=== PATIENT | female | born 1970 | race Caucasian/White ===

== ENCOUNTER 2016-09-07 08:39 | Emergency (ER) | payer MEDICAID ==
[2016-09-07] MEDS ORDERED: OXYcodone/APAP 5/325MG TABLET ONE (09:15)
== END 2016-09-07 10:29 | disposition home or self-care (01) ==
LOC: ED 08:39
DX: S29.011A Strain of muscle and tendon of front wall of thorax, initial encounter (principal); X58.XXXA Exposure to other specified factors, initial encounter; Y93.89 Activity, other specified; Y99.8 Other external cause status; Y92.89 Other specified places as the place of occurrence of the external cause
CPT/HCPCS: 99284

== ENCOUNTER → 2017-07-12 | Outpatient (CLI) | payer MEDICAID | END | disposition home or self-care (01) | LOC: WOUND 13:22 | PROVIDERS: ATTEND Internal Medicine | DX: L97.422 Non-pressure chronic ulcer of left heel and midfoot with fat layer exposed (principal); F31.9 Bipolar disorder, unspecified; E03.9 Hypothyroidism, unspecified; F41.9 Anxiety disorder, unspecified; M19.90 Unspecified osteoarthritis, unspecified site; F17.210 Nicotine dependence, cigarettes, uncomplicated; Z90.710 Acquired absence of both cervix and uterus | CPT/HCPCS: 99215 ==

== ENCOUNTER → 2017-07-21 | Outpatient (CLI) | payer MEDICAID | END | disposition home or self-care (01) | LOC: WOUND 14:28 | PROVIDERS: ATTEND Internal Medicine | DX: L97.422 Non-pressure chronic ulcer of left heel and midfoot with fat layer exposed (principal); F31.9 Bipolar disorder, unspecified; E03.9 Hypothyroidism, unspecified; M19.90 Unspecified osteoarthritis, unspecified site; F41.9 Anxiety disorder, unspecified; Z90.710 Acquired absence of both cervix and uterus; F17.210 Nicotine dependence, cigarettes, uncomplicated | CPT/HCPCS: 97597 ==

== ENCOUNTER 2018-01-29 00:13 | Emergency (ER) | payer MEDICAID ==
[~2018-01-29] VITALS: Ht 165.1 cm; Wt 62.0 kg
[~2018-01-29 00:13] MED LIST: CARB200T PO; CLON0.5T PO; ESTR2TAB PO; GABA300C PO; LEVO100T PO; PREG100C PO; QUET200T4 PO; SUVO20TA PO; TIZA4CAP2 PO; TOPI100T24 PO; TOPI50TA35 PO; VENL150C PO
[2018-01-29 00:17] VITALS: BP 133/85
[2018-01-29] MEDS ORDERED: KETOROLAC 30 MG/1 ML ONE (00:41)
[2018-01-29] MEDS ORDERED: KETOROLAC 30 MG/1 ML IM ONE (01:00)
[2018-01-29] MEDS ORDERED: HYDROcodone/APAP 5/325 TABLET PO ONE (01:30)
[2018-01-29] MEDS ORDERED: HYDROcodone/APAP 5/325 TABLET ONE (01:39)
== END 2018-01-29 01:54 | disposition home or self-care (01) ==
LOC: ED 00:45
DX: G89.11 Acute pain due to trauma (principal); M25.562 Pain in left knee; F31.9 Bipolar disorder, unspecified; F17.210 Nicotine dependence, cigarettes, uncomplicated; Z86.19 Personal history of other infectious and parasitic diseases
CPT/HCPCS: 73564; 96372; 99284; J1885

== ENCOUNTER 2019-12-26 21:21 | Emergency (ER) | payer MEDICAID ==
[~2019-12-26] VITALS: Ht 165.1 cm; Wt 72.2 kg
[~2019-12-26 21:21] MED LIST changes: +CEFD300C37 PO; +METR500T PO; +OXYC5TAB3 PO; +PROM25TA10 PO
--- NOTE | 2019-12-26 21:33 | NUR ---
CARE ASSUMED. PROVIDER AT BEDSIDE TO EVAL.
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
[2019-12-26] MEDS ORDERED: HYDROcodone/APAP 5/325 TABLET ONE (21:45)
--- NOTE | 2019-12-26 21:52 | NUR ---
Pt medicated per JUN for 10/[address] Pt to CT via bonnie.
[2019-12-26] MEDS ORDERED: HYDROcodone/APAP 5/325 TABLET PO ONE (22:00)
--- NOTE | 2019-12-26 22:21 | NUR ---
Pt laying down. States no change in pain. Pt states she feels like her nose is swelling more and feels stuffy. No s/s of acute resp distress. No acute neuro changes noted. VSS. Call light in reach. PA to be updated to pt status. Awaiting CT results.
--- NOTE | 2019-12-26 22:35 | NUR ---
ERP at bedside to recheck.
[2019-12-26] MEDS ORDERED: ONDANSETRON ODT 4 MG ONE (22:53)
[2019-12-26] MEDS ORDERED: HYDROmorphone 1 MG/ML, 1ML INJ ONE (22:54)
--- NOTE | 2019-12-26 22:55 | NUR ---
PER LEXUS LARES, HOLD ON IV. IM MEDS TO BE GIVEN INSTEAD. PT TO BE D/C HOME.
[2019-12-26] MEDS ORDERED: MORPHINE SULFATE 4 MG/ML, 1ML IVPush PRN (23:00)
[2019-12-26] MEDS ORDERED: ONDANSETRON 2MG/ML, 2ML IVPush ONE (23:00)
[2019-12-26] MEDS ORDERED: SODIUM CHLORIDE FLUSH 10ML SYR IVF ONE (23:00)
--- NOTE | 2019-12-26 23:04 | NUR ---
Pt medicated per PA orders. 1 mg Dilaudid IM and 4 mg Zofran ODT. Warm blanket given. Ice packs given. Awaiting pt's ride home to d/c. Call light in reach.
[2019-12-26] MEDS ORDERED: ONDANSETRON ODT 4 MG PO ONE (23:30)
[2019-12-26] MEDS ORDERED: HYDROmorphone 1 MG/ML, 1ML INJ IM ONE (23:30)
--- NOTE | 2019-12-26 23:32 | NUR ---
Pt waiting for ride. No needs expressed. Call light in reach.
[2019-12-26 23:46] VITALS: BP 127/83
== END 2019-12-26 23:50 | disposition home or self-care (01) ==
LOC: ED 22:05
DX: S02.32XA Fracture of orbital floor, left side, initial encounter for closed fracture (principal); S02.40FA Zygomatic fracture, left side, initial encounter for closed fracture; S02.40DA Maxillary fracture, left side, initial encounter for closed fracture; S09.90XA Unspecified injury of head, initial encounter; M54.2 Cervicalgia; Y04.8XXA Assault by other bodily force, initial encounter; Y93.89 Activity, other specified; Y92.512 Supermarket, store or market as the place of occurrence of the external cause; Y99.8 Other external cause status
CPT/HCPCS: 70450; 70486; 72125; 96372; 99285; J1170; Q0162

== ENCOUNTER 2020-01-30 18:50 | Inpatient (IN) | payer MEDICAID ==
[~2020-01-30] VITALS: Ht 165.1 cm; Wt 73.5 kg
[2020-01-30] MEDS ORDERED: PROMETHAZINE 25 MG/ML, 1ML IM ONE (19:30)
[2020-01-30] MEDS ORDERED: MORPHINE SULFATE 4 MG/ML, 1ML ONE (19:39)
[2020-01-30] MEDS ORDERED: PROMETHAZINE 25 MG/ML, 1ML ONE (19:40)
--- NOTE | 2020-01-30 19:45 | NUR ---
PT UP TO RESTROOM, UNCONTROLLED DIARRHEA. SAMPLE COLLECTED, PT PROVIDED WITH NEW UNDERWEAR, PAD, AND WATERPROOF PAD FOR BED. DENIES ANY FURTHER NEEDS, CALL LIGHT IN REACH. SAMPLE WALKED TO LAB.
[2020-01-30] MEDS: MORPHINE SULFATE 4 MG/ML, 1ML IVPush PRN (20:26)
[2020-01-30 20:37] LABS: ALANINE AMINOTRANSFERASE 16 U/L (12-78); ALBUMIN 4.4 g/dL (3.4-5.0); ANION GAP 10 mmol/L (5-15); CALCIUM 10.1 mg/dL (8.5-10.1); CHLORIDE 106 mmol/L (98-107); CREATININE 1.41 mg/dL (0.55-1.02)
[2020-01-30 20:38] LABS: ALKALINE PHOSPHATASE 247 U/L (45-117); BILIRUBIN,TOTAL 0.4 mg/dL (0.2-1.0); TOTAL PROTEIN 8.1 g/dL (6.4-8.2)
[2020-01-30 20:51] LABS: BASOPHILS % (AUTO) 0 % (0-1); EOSINOPHILS % (AUTO) 0 % (1-7); LYMPHOCYTES % (AUTO) 7 % (22-44); MEAN CORPUSCULAR HEMOGLOBIN 30.1 pg (27.0-34.8); MEAN CORPUSCULAR HGB CONC 33.3 g/dL (32.4-35.8); MEAN PLATELET VOLUME 9.3 fL (7.4-10.4); MONOCYTES % (AUTO) 3 % (2-9); NEUTROPHILS % (AUTO) 91 % (42-75); PLATELET COUNT 408 x10^3/uL (130-400); RED BLOOD COUNT 5.16 x10^6/uL (3.82-5.3); RED CELL DISTRIBUTION WIDTH 12.6 % (9.6-15.2)
[2020-01-30] MEDS ORDERED: OMNIPAQUE 350 MG/ML, 100ML BOTTLE ONE (21:06)
--- NOTE | 2020-01-30 21:13 | NUR ---
PT RETURNED FROM CT AT THIS TIME.
[2020-01-30 21:19] LABS: MD SCAN
[2020-01-30 21:27] LABS: CLOSTRIDIUM DIFFICILE ANTIGEN NEGATIVE; CLOSTRIDIUM DIFFICILE TOXIN NEGATIVE (Negative)
[2020-01-30] MEDS ORDERED: POTASSIUM CHLORIDE 20 MEQ in SODIUM CHLORIDE 0.9% 1,000 ML IV ONE (23:30)
[2020-01-30] MEDS ORDERED: SODIUM CHLORIDE FLUSH 10ML SYR IVF PRN (23:30)
--- NOTE | 2020-01-30 23:32 | NUR ---
MED REC REVIEWED TO THE BEST OF THIS NURSE'S CAPABILITIES, PT UNSURE OF DOSAGES.
--- NOTE | 2020-01-30 23:53 | NUR ---
REPORT TO DAVEY ABEL RN. PT UPDATED ON PLAN OF CARE. DENIES ANY NEEDS OR CONCERNS AT THIS TIME.
[2020-01-31] MEDS ORDERED: SODIUM CHLORIDE 0.9% 1,000 ML IV SCH (00:30)
[2020-01-31] MEDS ORDERED: LORazepam 2 MG/ML, 1ML IVPush PRN (00:30)
[2020-01-31] MEDS ORDERED: KETOROLAC 30 MG/1 ML IV PRN (00:30)
[2020-01-31] MEDS ORDERED: ONDANSETRON 2MG/ML, 2ML IVPush PRN (00:30)
[2020-01-31] MEDS ORDERED: ENALAPRILAT 1.25 MG/ML, 2ML IVPush PRN (00:30)
--- NOTE | 2020-01-31 00:32 | NUR ---
10G NG TUBE INSTILLED IN RIGHT NOSTRIL. POSITIVE RETURN OF GASTRIC CONTENTS AND INSUFFLATION OVER LUQ. TAPED INTO PLACE AND ON INTERMITTENT LOW SUCTION PER ORDERS AT THIS TIME. XRAY CALLED TO VERIFY PLACEMENT. PT TOLERATED VERY WELL, DENIES ANY NEEDS OR CONCERNS AT THIS TIME. CALL LIGHT IN REACH.
[2020-01-31] MEDS ORDERED: MORPHINE SULFATE 4 MG/ML, 1ML ONE (00:39)
[2020-01-31] MEDS: MORPHINE SULFATE 4 MG/ML, 1ML IVPush PRN (00:49)
[2020-01-31] MEDS ORDERED: SODIUM CHLORIDE 0.9% 1,000ML IVBOLUS ONE (01:00)
[2020-01-31] MEDS ORDERED: CEFAZOLIN PMX 2GM/50ML 50 ML IVPB ONE (01:00)
[2020-01-31 01:22] VITALS: BP 112/78
[2020-01-31] MEDS ORDERED: BREX3TAB PO (01:49)
[2020-01-31] MEDS ORDERED: [UNRECOGNIZED DRUG - OTHER] PO (01:49)
[2020-01-31] MEDS ORDERED: vraylar PO (01:49)
[2020-01-31] MEDS: HEPARIN 5,000 UNITS/ML, 1ML SQ SCH ×3 (02:14→20:23)
[2020-01-31] MEDS ORDERED: NS + 20MEQ KCL 1,000 ML IV ONE (02:30)
[2020-01-31 05:05] LABS: INTERNATIONAL NORMALIZED RATIO 0.99 (0.93-1.1); PROTHROMBIN TIME 10.5 Seconds (9.6-11.5)
[2020-01-31 05:12] LABS: ANION GAP 4 mmol/L (5-15); CALCIUM 8.4 mg/dL (8.5-10.1); CHLORIDE 108 mmol/L (98-107)
[2020-01-31 05:13] LABS: CREATININE 1.14 mg/dL (0.55-1.02)
[2020-01-31 05:52] LABS: BASOPHILS % (AUTO) 1 % (0-1); EOSINOPHILS % (AUTO) 1 % (1-7); LYMPHOCYTES % (AUTO) 14 % (22-44); MEAN CORPUSCULAR HEMOGLOBIN 30.5 pg (27.0-34.8); MEAN CORPUSCULAR HGB CONC 32.8 g/dL (32.4-35.8); MEAN PLATELET VOLUME 9.5 fL (7.4-10.4); MONOCYTES % (AUTO) 2 % (2-9); NEUTROPHILS % (AUTO) 83 % (42-75); PLATELET COUNT 316 x10^3/uL (130-400); RED BLOOD COUNT 4.49 x10^6/uL (3.82-5.3); RED CELL DISTRIBUTION WIDTH 12.7 % (9.6-15.2)
[2020-01-31] MEDS ORDERED: LEVOTHYROXINE 100 MCG TABLET PO SCH (06:00)
[2020-01-31 06:29] VITALS: BP 103/70
[2020-01-31 06:31] LABS: MD SCAN
[2020-01-31] MEDS ORDERED: KETOROLAC 30 MG/1 ML IV SCH (08:30)
[2020-01-31] MEDS: morphine SULFATE 10 MG/ML, 1ML IVPush PRN ×4 (08:34→20:24)
[2020-01-31 14:09] VITALS: BP 101/68
[2020-01-31] MEDS ORDERED: KETOROLAC 30 MG/1 ML IM PRN (16:30)
[2020-01-31 18:46] VITALS: BP 94/61
[2020-01-31] MEDS ORDERED: QUETIAPINE 200 MG TABLET PO SCH (21:00)
[2020-01-31] MEDS ORDERED: TEMPLATE NON-FORMULARY MED. (Suvorexant (Belsomra) 20 MG) HOMEMEDPO SCH (21:00)
[2020-01-31] MEDS: KETOROLAC 30 MG/1 ML IV PRN (23:19)
[2020-01-31 23:24] LABS: MICROSCOPIC INDICATED
[2020-02-01] MEDS ORDERED: SODIUM CHLORIDE 0.9% 1,000 ML IV SCH ×2 (00:30)
[2020-02-01 00:34] VITALS: BP 98/60
[2020-02-01] MEDS: morphine SULFATE 10 MG/ML, 1ML IVPush PRN ×8 (02:34→23:54)
[2020-02-01] MEDS: HEPARIN 5,000 UNITS/ML, 1ML SQ SCH ×3 (05:17→19:54)
[2020-02-01 05:27] LABS: MEAN CORPUSCULAR HEMOGLOBIN 30.8 pg (27.0-34.8); MEAN CORPUSCULAR HGB CONC 33.2 g/dL (32.4-35.8); MEAN PLATELET VOLUME 8.2 fL (7.4-10.4); PLATELET COUNT 246 x10^3/uL (130-400); RED BLOOD COUNT 3.83 x10^6/uL (3.82-5.3); RED CELL DISTRIBUTION WIDTH 12.7 % (9.6-15.2)
[2020-02-01 05:39] LABS: ANION GAP 3 mmol/L (5-15); CALCIUM 8.1 mg/dL (8.5-10.1); CHLORIDE 116 mmol/L (98-107); CREATININE 0.79 mg/dL (0.55-1.02)
[2020-02-01 06:01] VITALS: BP 112/77
[2020-02-01 06:17] LABS: MD YES
[2020-02-01 06:19] LABS: <PLATELET ESTIMATE> ADEQUATE; <PLT MORPHOLOGY> NORMAL PLT MORPH; <RBC MORPHOLOGY> NORMAL; LYMPHS% (MANUAL) 52 % (22-44); MONOS#(MANUAL) 0.16 x10^3/uL (0.3-2.7); MONOS% (MANUAL) 3 % (2-9); SEG#(MANUAL) 2.34 x10^3/uL (1.8-6.8); SEGS% (MANUAL) 45 % (42-75)
[2020-02-01] MEDS: SODIUM CHLORIDE 0.45% 1,000 ML IV SCH (13:00)
[2020-02-01 15:07] VITALS: BP 111/77
[2020-02-01 18:21] VITALS: BP 91/59
[2020-02-01 20:00] VITALS: BP 103/70
[2020-02-01 23:44] VITALS: BP 115/78
[2020-02-02 02:31] VITALS: BP 114/76
[2020-02-02] MEDS: morphine SULFATE 10 MG/ML, 1ML IVPush PRN ×5 (03:16→17:25)
[2020-02-02] MEDS: HEPARIN 5,000 UNITS/ML, 1ML SQ SCH ×3 (03:16→21:23)
[2020-02-02] MEDS: SODIUM CHLORIDE 0.45% 1,000 ML IV SCH (03:27)
[2020-02-02 05:06] LABS: ANION GAP 7 mmol/L (5-15); CHLORIDE 115 mmol/L (98-107)
[2020-02-02 05:11] LABS: BASOPHILS % (AUTO) 1 % (0-1); EOSINOPHILS % (AUTO) 0 % (1-7); LYMPHOCYTES % (AUTO) 37 % (22-44); MEAN CORPUSCULAR HEMOGLOBIN 30.6 pg (27.0-34.8); MEAN CORPUSCULAR HGB CONC 33.1 g/dL (32.4-35.8); MEAN PLATELET VOLUME 8.7 fL (7.4-10.4); MONOCYTES % (AUTO) 7 % (2-9); NEUTROPHILS % (AUTO) 56 % (42-75); PLATELET COUNT 207 x10^3/uL (130-400); RED BLOOD COUNT 3.37 x10^6/uL (3.82-5.3); RED CELL DISTRIBUTION WIDTH 12.4 % (9.6-15.2)
[2020-02-02 05:21] LABS: MD NO
[2020-02-02 06:24] VITALS: BP 124/84
[2020-02-02] MEDS: KETOROLAC 30 MG/1 ML IV PRN ×2 (08:11→18:39)
[2020-02-02] MEDS ORDERED: POTASSIUM CHLORIDE 20 MEQ in SODIUM CHLORIDE 0.45% 1,000 ML IV SCH (10:30)
[2020-02-02 10:57] LABS: MICROSCOPIC NOT IND
[2020-02-02 12:56] VITALS: BP 130/78
[2020-02-02] MEDS: POTASSIUM CHLORIDE 20 MEQ in SODIUM CHLORIDE 0.45% 1,000 ML IV SCH (14:30)
[2020-02-02] MEDS ORDERED: POTASSIUM CHLORIDE 20 MEQ in SODIUM CHLORIDE 0.9% 250 ML IV ONE (15:00)
[2020-02-02 19:02] VITALS: BP 117/75
[2020-02-02] MEDS ORDERED: PROMETHAZINE 25MG TABLET PO PRN (20:00)
[2020-02-02] MEDS ORDERED: PROMETHAZINE 25 MG/ML, 1ML IM PRN (20:00)
[2020-02-02] MEDS ORDERED: QUETIAPINE 200 MG TABLET PO SCH (21:00)
[2020-02-03 00:34] VITALS: BP 109/71
[2020-02-03] MEDS: POTASSIUM CHLORIDE 20 MEQ in SODIUM CHLORIDE 0.45% 1,000 ML IV SCH (00:39)
[2020-02-03 03:15] VITALS: BP 116/75
[2020-02-03 05:20] LABS: ANION GAP 4 mmol/L (5-15); CALCIUM 8.2 mg/dL (8.5-10.1); CHLORIDE 116 mmol/L (98-107)
[2020-02-03 05:22] LABS: CREATININE 0.64 mg/dL (0.55-1.02)
[2020-02-03 05:23] VITALS: BP 112/70
[2020-02-03] MEDS: HEPARIN 5,000 UNITS/ML, 1ML SQ SCH ×2 (05:35→13:23)
[2020-02-03] MEDS: morphine SULFATE 10 MG/ML, 1ML IVPush PRN (05:35)
[2020-02-03 06:06] LABS: BASOPHILS % (AUTO) 1 % (0-1); EOSINOPHILS % (AUTO) 0 % (1-7); LYMPHOCYTES % (AUTO) 50 % (22-44); MEAN CORPUSCULAR HEMOGLOBIN 30.6 pg (27.0-34.8); MEAN CORPUSCULAR HGB CONC 33.9 g/dL (32.4-35.8); MEAN PLATELET VOLUME 8.9 fL (7.4-10.4); MONOCYTES % (AUTO) 9 % (2-9); NEUTROPHILS % (AUTO) 41 % (42-75); PLATELET COUNT 227 x10^3/uL (130-400); RED BLOOD COUNT 3.62 x10^6/uL (3.82-5.3); RED CELL DISTRIBUTION WIDTH 12.3 % (9.6-15.2)
[2020-02-03 06:18] LABS: MD NO
[2020-02-03 06:19] VITALS: BP 139/86
[2020-02-03] MEDS ORDERED: [UNRECOGNIZED DRUG - OTHER] PO SCH (09:00)
[2020-02-03] MEDS ORDERED: CARIPRAZINE HOMEMEDPO SCH (09:00)
[2020-02-03] MEDS ORDERED: ACETAMINOPHEN 325 MG TABLET PO PRN (09:30)
[2020-02-03] MEDS ORDERED: IBUPROFEN 600 MG TABLET PO PRN (09:30)
[2020-02-03 12:13] VITALS: BP 136/77
== END 2020-02-03 16:07 | disposition home or self-care (01) | DRG 247 ==
LOC: ED 20:55 → EDIP 23:46 → 3N 01-31 01:18 → DCLOUNGE 02-03 15:31
PROVIDERS: ADMIT Family Medicine; ATTEND Family Medicine
DX: K56.600 Partial intestinal obstruction, unspecified as to cause (principal); E03.9 Hypothyroidism, unspecified; E86.0 Dehydration; E87.1 Hypo-osmolality and hyponatremia; E87.2 Acidosis; E87.6 Hypokalemia; F12.10 Cannabis abuse, uncomplicated; F17.200 Nicotine dependence, unspecified, uncomplicated; F19.20 Other psychoactive substance dependence, uncomplicated; F31.81 Bipolar II disorder; F41.1 Generalized anxiety disorder; F43.10 Post-traumatic stress disorder, unspecified; F60.3 Borderline personality disorder; I10 Essential (primary) hypertension; I25.10 Atherosclerotic heart disease of native coronary artery without angina pectoris; K55.9 Vascular disorder of intestine, unspecified; Z96.659 Presence of unspecified artificial knee joint; M19.90 Unspecified osteoarthritis, unspecified site; I34.1 Nonrheumatic mitral (valve) prolapse; K56.7 Ileus, unspecified; N17.9 Acute kidney failure, unspecified; Z79.899 Other long term (current) drug therapy; Z86.19 Personal history of other infectious and parasitic diseases; Z90.49 Acquired absence of other specified parts of digestive tract; Z90.710 Acquired absence of both cervix and uterus; R71.0 Precipitous drop in hematocrit
CPT/HCPCS: 36415; 71045; 74018; 74177; 74270; 80048; 80053; 81001; 81003; 83605; 83690; 83735; 84100; 85025; 85610; 87040; 87324; 93005; 96372; 99285; G0378; J0690; J1644; J1885; J2550; J3480; Q9967; J2270; J7030; J7050

== ENCOUNTER 2020-03-07 13:23 | Emergency (ER) | payer MEDICAID ==
[~2020-03-07] VITALS: Ht 165.1 cm; Wt 73.8 kg
[~2020-03-07 13:23] MED LIST changes: +BREX3TAB PO; +CARB200T4 PO; +ESOM20CA PO; +LEVO100T5 PO; +MEMA5TAB42 PO; +PANT40GR PO; +QUET400T PO; +SUMA50TA4 PO; +SUVO10TA PO; +[UNRECOGNIZED DRUG - OTHER] PO; +vraylar PO
[2020-03-07 13:44] VITALS: BP 112/66
--- NOTE | 2020-03-07 14:24 | NUR ---
PT GOING TO XRAY
--- NOTE | 2020-03-07 14:59 | NUR ---
ALL RESULTS ARE BACK AT THIS TIME. CHART UP FOR RECHECK.
[2020-03-07] MEDS ORDERED: MAGNESIUM CITRATE 300ML ORAL SOL PO ONE (15:30)
== END 2020-03-07 15:54 | disposition home or self-care (01) ==
LOC: ED 15:32
DX: S83.422A Sprain of lateral collateral ligament of left knee, initial encounter (principal); K59.00 Constipation, unspecified; G89.29 Other chronic pain; M19.90 Unspecified osteoarthritis, unspecified site; F17.210 Nicotine dependence, cigarettes, uncomplicated; Z90.710 Acquired absence of both cervix and uterus; X58.XXXA Exposure to other specified factors, initial encounter; Y93.89 Activity, other specified; Y92.89 Other specified places as the place of occurrence of the external cause; Y99.8 Other external cause status
CPT/HCPCS: 74022; 99284; 99406

== ENCOUNTER 2020-08-14 00:03 | Emergency (ER) | payer MEDICAID ==
[~2020-08-14] VITALS: Ht 167.6 cm; Wt 70.0 kg
[~2020-08-14 00:03] MED LIST changes: -OXYC5TAB3 PO; +OXYC5TAB98 PO
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
--- NOTE | 2020-08-14 00:18 | NUR ---
ERP AT BEDSIDE
[2020-08-14] MEDS ORDERED: LORazepam 1MG TABLET ONE (00:26)
[2020-08-14] MEDS ORDERED: LORazepam 1MG TABLET PO ONE (00:30)
--- NOTE | 2020-08-14 01:24 | NUR ---
PT RESTING COMFORTABLY ON GURNEY WITH EYES CLOSED. PT REPOSITIONED PER REQUEST AND PROVIDED WARM BLANKETS. PT DENIES ANY ADDITIONAL NEEDS AT THIS TIME. SAFETY PRECAUTIONS IN PLACE AND SITTER IN VIEW.
--- NOTE | 2020-08-14 02:01 | NUR ---
PT ON PHONE WITH PER ERP SUGGESTION. PT AND CONSISTENTLY ARGUING ON PHONE. WILL NOT COME PICK PT UP NOR LET HER INTO THEIR HOME, PER PT AND DISCUSSION. ERP AWARE. PT TO REMAIN IN ED UNTIL SAFE DISCHARGE OPTION AVAIALBLE.
[2020-08-14] MEDS ORDERED: QUETIAPINE 100MG TABLET PO ONE (02:30)
--- NOTE | 2020-08-14 02:40 | NUR ---
PT REQUESTING NIGHTLY DOSE OF SEROQUEL, 800 MG. ERP AWARE AND PT MEDICATED PER EMAR. PT REPOSITIONED AND PROVIDED ADDITIONAL BLANKET. PT DENIES ANY ADDITIONAL NEEDS
[2020-08-14] MEDS ORDERED: QUETIAPINE 200 MG TABLET PO ONE (03:00)
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
[2020-08-14 05:58] VITALS: BP 110/72
--- NOTE | 2020-08-14 05:59 | NUR ---
Patient given discharge instructions and they have confirmed that they understand the instructions. Patient ambulatory with steady gait.
== END 2020-08-14 06:08 | disposition home or self-care (01) ==
LOC: ED 00:33
DX: F32.9 Major depressive disorder, single episode, unspecified (principal); F41.1 Generalized anxiety disorder; Z72.9 Problem related to lifestyle, unspecified; F17.210 Nicotine dependence, cigarettes, uncomplicated
CPT/HCPCS: 99283; 99406

== ENCOUNTER 2020-08-20 12:19 | Emergency (ER) | payer MEDICAID ==
[~2020-08-20] VITALS: Ht 165.1 cm; Wt 66.6 kg
[2020-08-20] MEDS ORDERED: SODIUM CHLORIDE FLUSH 10ML SYR IVF ONE (13:30)
[2020-08-20] MEDS ORDERED: MORPHINE SULFATE 4 MG/ML, 1ML IVPush PRN (13:30)
[2020-08-20] MEDS ORDERED: PROMETHAZINE 25 MG/ML, 1ML IM ONE (13:30)
--- NOTE | 2020-08-20 13:40 | NUR ---
PT TO RADIOLOGY AT THIS TIME.
[2020-08-20 13:54] LABS: BASOPHILS % (AUTO) 1 % (0-1); EOSINOPHILS % (AUTO) 0 % (1-7); LYMPHOCYTES % (AUTO) 15 % (22-44); MEAN CORPUSCULAR HEMOGLOBIN 30.7 pg (27.0-34.8); MEAN CORPUSCULAR HGB CONC 33.4 g/dL (32.4-35.8); MEAN PLATELET VOLUME 8.3 fL (7.4-10.4); MONOCYTES % (AUTO) 6 % (2-9); NEUTROPHILS % (AUTO) 78 % (42-75); PLATELET COUNT 284 x10^3/uL (130-400); RED BLOOD COUNT 4.63 x10^6/uL (3.82-5.3)
[2020-08-20] MEDS ORDERED: MORPHINE SULFATE 4 MG/ML, 1ML ONE (13:54)
[2020-08-20] MEDS ORDERED: PROMETHAZINE 25 MG/ML, 1ML ONE (13:54)
[2020-08-20 13:57] LABS: MD NO
[2020-08-20 14:03] LABS: ANION GAP 4 mmol/L (5-15); CALCIUM 9.6 mg/dL (8.5-10.1); CHLORIDE 104 mmol/L (98-107)
[2020-08-20 14:07] LABS: ALANINE AMINOTRANSFERASE 18 U/L (12-78); ALKALINE PHOSPHATASE 199 U/L (45-117); BILIRUBIN,TOTAL 0.2 mg/dL (0.2-1.0); CREATININE 1.06 mg/dL (0.55-1.02); TOTAL PROTEIN 7.8 g/dL (6.4-8.2)
[2020-08-20] MEDS ORDERED: OMNIPAQUE 350 MG/ML, 100ML BOTTLE ONE (14:53)
[2020-08-20 16:31] VITALS: BP 97/50
== END 2020-08-20 16:35 | disposition home or self-care (01) ==
LOC: ED 13:51
DX: K52.9 Noninfective gastroenteritis and colitis, unspecified (principal); F17.210 Nicotine dependence, cigarettes, uncomplicated; Z90.710 Acquired absence of both cervix and uterus
CPT/HCPCS: 36415; 74021; 74177; 80053; 83690; 85025; 96372; 96374; 99285; J2270; J2550; Q9967

== ENCOUNTER → 2020-09-02 | Outpatient (CLI) | payer MEDICAID | END | disposition home or self-care (01) | LOC: RAD 15:51 | PROVIDERS: ATTEND Emergency Medicine | DX: R10.9 Unspecified abdominal pain (principal) | CPT/HCPCS: 76770 ==

== ENCOUNTER 2020-12-25 09:53 | Inpatient (IN) | payer MEDICAID ==
[~2020-12-25] VITALS: Ht 165.1 cm; Wt 78.5 kg
[~2020-12-25 09:53] MED LIST changes: -QUET400T PO; +QUET400T2 PO
[2020-12-25] MEDS ORDERED: ONDANSETRON 2MG/ML, 2ML ONE (11:53)
[2020-12-25] MEDS ORDERED: MORPHINE SULFATE 4 MG/ML, 1ML ONE ×4 (11:53→21:35)
--- NOTE | 2020-12-25 11:55 | NUR ---
poc reviewed with erp. He would like ct completed read before NG placed
[2020-12-25 11:58] LABS: BASOPHILS % (AUTO) 0 % (0-1); EOSINOPHILS % (AUTO) 0 % (1-7); LYMPHOCYTES % (AUTO) 13 % (22-44); MEAN CORPUSCULAR HEMOGLOBIN 30.7 pg (27.0-34.8); MEAN CORPUSCULAR HGB CONC 34.2 g/dL (32.4-35.8); MEAN PLATELET VOLUME 9.4 fL (7.4-10.4); MONOCYTES % (AUTO) 7 % (2-9); NEUTROPHILS % (AUTO) 80 % (42-75); PLATELET COUNT 261 x10^3/uL (130-400); RED BLOOD COUNT 5.06 x10^6/uL (3.82-5.3); RED CELL DISTRIBUTION WIDTH 12.9 % (9.6-15.2)
[2020-12-25] MEDS ORDERED: SODIUM CHLORIDE 0.9% 1,000ML IVBOLUS ONE (12:00)
[2020-12-25] MEDS ORDERED: ONDANSETRON 2MG/ML, 2ML IVPush ONE (12:00)
[2020-12-25] MEDS ORDERED: SODIUM CHLORIDE FLUSH 10ML SYR IVF ONE (12:00)
[2020-12-25 12:07] LABS: ANION GAP 8 mmol/L (5-15); CALCIUM 9.2 mg/dL (8.5-10.1); CHLORIDE 100 mmol/L (98-107)
[2020-12-25 12:11] LABS: ALANINE AMINOTRANSFERASE 25 U/L (12-78); ALKALINE PHOSPHATASE 236 U/L (45-117); BILIRUBIN,TOTAL 0.5 mg/dL (0.2-1.0); CREATININE 1.03 mg/dL (0.55-1.02); TOTAL PROTEIN 7.8 g/dL (6.4-8.2)
--- NOTE | 2020-12-25 12:11 | NUR ---
CT CALLED TO EXPEDITE EXAM
[2020-12-25] MEDS ORDERED: PROCHLORPERAZINE 5 MG/ML, 2ML ONE (12:20)
[2020-12-25] MEDS ORDERED: PROCHLORPERAZINE 5 MG/ML, 2ML IVPush ONE (12:30)
[2020-12-25] MEDS ORDERED: OMNIPAQUE 350 MG/ML, 100ML BOTTLE ONE (12:32)
[2020-12-25] MEDS: MORPHINE SULFATE 4 MG/ML, 1ML IVPush PRN ×2 (12:38→15:33)
--- NOTE | 2020-12-25 13:17 | NUR ---
With reassessment abd pain/nausea relived to 0/10 Poc reviewed with provider: no need to cath for ua, can wait until patient voids ERP considering neccesary interventions for abnormal CT results
[2020-12-25] MEDS ORDERED: MIDAZOLAM 1 MG/ML, 2ML ONE (13:25)
--- NOTE | 2020-12-25 13:48 | NUR ---
1MG OF VERSED USED TO GENTLY PLACED RIGHT NARE 18F NG TUBE
[2020-12-25] MEDS ORDERED: MIDAZOLAM 1 MG/ML, 2ML IVPush PRN (14:00)
[2020-12-25] MEDS ORDERED: hydrALAzine 20 MG/ML, 1ML IVPush PRN (14:30)
[2020-12-25] MEDS ORDERED: ACETAMINOPHEN 325 MG TABLET PO PRN (14:30)
[2020-12-25] MEDS ORDERED: ONDANSETRON 2MG/ML, 2ML IVPush PRN (14:30)
[2020-12-25 14:38] LABS: INTERNATIONAL NORMALIZED RATIO 1.02 (0.93-1.1); PROTHROMBIN TIME 10.9 Seconds (9.6-11.5)
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
[2020-12-25] MEDS: LACTATED RINGERS 1,000 ML IV SCH (15:30)
[2020-12-25] MEDS ORDERED: ENOXAPARIN 40 MG/0.4 ML ONE (15:31)
[2020-12-25] MEDS: ENOXAPARIN 40 MG/0.4 ML SQ SCH (15:33)
[2020-12-25] MEDS: morphine SULFATE 10 MG/ML, 1ML IVPush PRN ×2 (17:56→21:37)
[2020-12-25 19:05] VITALS: BP 103/71
[2020-12-25] MEDS: FAMOTIDINE 20 MG/2 ML IVPush SCH (19:47)
[2020-12-25] MEDS: NICOTINE 14MG/24 HR PATCH.TD24 TD SCH (19:48)
[2020-12-26] MEDS: LACTATED RINGERS 1,000 ML IV SCH ×3 (00:24→17:53)
[2020-12-26 01:44] VITALS: BP 99/66
[2020-12-26 02:17] LABS: MICROSCOPIC NOT IND
[2020-12-26 02:32] LABS: AMPHETAMINE SCREEN, URINE Positive (Negative); BARBITURATE SCREEN, URINE Negative (Negative); BENZODIAZEPINE SCREEN, URINE Positive (Negative); CANNABINOID SCREEN, URINE Positive (Negative); COCAINE SCREEN, URINE Negative (Negative); METHADONE SCREEN, URINE Negative (Negative); OPIATE SCREEN, URINE Positive (Negative)
[2020-12-26] MEDS ORDERED: MORPHINE SULFATE 4 MG/ML, 1ML ONE (03:15)
[2020-12-26] MEDS: morphine SULFATE 10 MG/ML, 1ML IVPush PRN ×5 (03:17→20:30)
[2020-12-26 05:19] LABS: BASOPHILS % (AUTO) 0 % (0-1); EOSINOPHILS % (AUTO) 0 % (1-7); LYMPHOCYTES % (AUTO) 25 % (22-44); MEAN CORPUSCULAR HGB CONC 34.3 g/dL (32.4-35.8); MEAN PLATELET VOLUME 9.3 fL (7.4-10.4); MONOCYTES % (AUTO) 9 % (2-9); NEUTROPHILS % (AUTO) 66 % (42-75); PLATELET COUNT 186 x10^3/uL (130-400); RED BLOOD COUNT 3.81 x10^6/uL (3.82-5.3); RED CELL DISTRIBUTION WIDTH 12.9 % (9.6-15.2)
[2020-12-26 05:34] LABS: ANION GAP 4 mmol/L (5-15); CALCIUM 7.7 mg/dL (8.5-10.1); CHLORIDE 107 mmol/L (98-107); CREATININE 0.65 mg/dL (0.55-1.02)
[2020-12-26 06:36] VITALS: BP 94/57
[2020-12-26] MEDS: FAMOTIDINE 20 MG/2 ML IVPush SCH ×2 (07:51→19:28)
[2020-12-26] MEDS ORDERED: LORazepam 2 MG/ML, 1ML IVPush ONE (08:30)
[2020-12-26] MEDS ORDERED: TIZA4CAP PO (11:57)
[2020-12-26 12:50] VITALS: BP 96/67
[2020-12-26] MEDS: ENOXAPARIN 40 MG/0.4 ML SQ SCH (14:43)
[2020-12-26 19:18] VITALS: BP 109/73
[2020-12-26] MEDS: NICOTINE 14MG/24 HR PATCH.TD24 TD SCH (19:31)
[2020-12-27 00:15] VITALS: BP 106/61
[2020-12-27] MEDS: morphine SULFATE 10 MG/ML, 1ML IVPush PRN ×2 (00:17→04:15)
[2020-12-27] MEDS: LACTATED RINGERS 1,000 ML IV SCH ×2 (02:02→10:00)
[2020-12-27 06:39] VITALS: BP 109/70
[2020-12-27] MEDS: FAMOTIDINE 20 MG/2 ML IVPush SCH ×2 (10:21→20:16)
[2020-12-27 12:28] VITALS: BP 116/73
[2020-12-27] MEDS: ENOXAPARIN 40 MG/0.4 ML SQ SCH (14:45)
[2020-12-27] MEDS: CARBAMAZEPINE 200 MG TABLET PO SCH ×2 (16:12→20:16)
[2020-12-27 19:59] VITALS: BP 126/78
[2020-12-27] MEDS: QUETIAPINE 200 MG TABLET PO SCH (20:16)
[2020-12-27] MEDS: NICOTINE 14MG/24 HR PATCH.TD24 TD SCH (20:17)
[2020-12-27] MEDS: SUVOREXANT 20 MG PO SCH (20:23)
[2020-12-28 02:00] VITALS: BP 119/73
[2020-12-28] MEDS: LEVOTHYROXINE 100 MCG TABLET PO SCH (05:36)
[2020-12-28 08:10] LABS: ANION GAP 10 mmol/L (5-15); CALCIUM 8.4 mg/dL (8.5-10.1); CHLORIDE 106 mmol/L (98-107); CREATININE 0.66 mg/dL (0.55-1.02)
[2020-12-28 08:40] VITALS: BP 133/85
[2020-12-28] MEDS: CARBAMAZEPINE 200 MG TABLET PO SCH ×3 (08:43→20:53)
[2020-12-28] MEDS: FAMOTIDINE 20 MG/2 ML IVPush SCH ×2 (08:43→20:53)
[2020-12-28] MEDS: TIZANIDINE 4MG TABLET PO SCH (08:43)
[2020-12-28] MEDS: PANTOPRAZOLE 20MG TABLET PO SCH (08:43)
[2020-12-28] MEDS ORDERED: LIDOCAINE 2% VISCOUS, 100ML MM PRN (09:00)
[2020-12-28] MEDS ORDERED: PHENOL THROAT SPRAY BOTTLE MM PRN (09:00)
[2020-12-28] MEDS ORDERED: POTASSIUM CHLORIDE 20 MEQ TAB.ER.PRT PO ONE (09:00)
[2020-12-28 14:28] VITALS: BP 134/87
[2020-12-28] MEDS: POLYETHYLENE GLYCOL 17 GM PACKET PO SCH (14:42)
[2020-12-28] MEDS: ENOXAPARIN 40 MG/0.4 ML SQ SCH (15:30)
[2020-12-28] MEDS: METOCLOPRAMIDE 5 MG/ML, 2ML IVPush SCH ×2 (15:30→20:53)
[2020-12-28 19:29] VITALS: BP 131/84
[2020-12-28] MEDS: NICOTINE 14MG/24 HR PATCH.TD24 TD SCH (20:00)
[2020-12-28] MEDS: SUVOREXANT 20 MG PO SCH (20:53)
[2020-12-28] MEDS: QUETIAPINE 200 MG TABLET PO SCH (20:53)
[2020-12-29 02:00] VITALS: BP 126/84
[2020-12-29] MEDS: METOCLOPRAMIDE 5 MG/ML, 2ML IVPush SCH ×2 (03:26→09:27)
[2020-12-29] MEDS: LEVOTHYROXINE 100 MCG TABLET PO SCH (05:42)
[2020-12-29 06:46] VITALS: BP 116/78
[2020-12-29] MEDS ORDERED: METO5TAB57 PO (08:19)
[2020-12-29] MEDS: POLYETHYLENE GLYCOL 17 GM PACKET PO SCH (09:00)
[2020-12-29] MEDS: TIZANIDINE 4MG TABLET PO SCH (09:26)
[2020-12-29] MEDS: PANTOPRAZOLE 20MG TABLET PO SCH (09:26)
[2020-12-29] MEDS: CARBAMAZEPINE 200 MG TABLET PO SCH (09:26)
[2020-12-29] MEDS: FAMOTIDINE 20 MG/2 ML IVPush SCH (09:27)
== END 2020-12-29 12:08 | disposition home or self-care (01) | DRG 247 ==
LOC: ED 14:15 → EDIP 14:33 → 4NW 18:25
PROVIDERS: ADMIT Internal Medicine; ATTEND Hospitalist
PROC: 0D9670Z Drainage of Stomach with Drainage Device, Via Natural or Artificial Opening (ICD-10-PCS; principal; 2020-12-26)
DX: K56.52 Intestinal adhesions [bands] with complete obstruction (principal); I77.4 Celiac artery compression syndrome; E87.1 Hypo-osmolality and hyponatremia; D64.9 Anemia, unspecified; E03.9 Hypothyroidism, unspecified; E86.0 Dehydration; E87.6 Hypokalemia; F17.210 Nicotine dependence, cigarettes, uncomplicated; F31.9 Bipolar disorder, unspecified; F41.1 Generalized anxiety disorder; M19.90 Unspecified osteoarthritis, unspecified site; M79.7 Fibromyalgia; Z85.41 Personal history of malignant neoplasm of cervix uteri; Z86.19 Personal history of other infectious and parasitic diseases; Z90.49 Acquired absence of other specified parts of digestive tract; Z90.710 Acquired absence of both cervix and uterus
CPT/HCPCS: 36415; 36600; 74018; 74021; 74177; 74270; 80048; 80053; 80307; 81003; 82140; 82803; 83690; 83735; 84075; 84100; 84443; 85025; 85610; 96361; 96374; 96375; 99285; G0378; J1650; J2250; J2405; Q9967; J0780; J2060; J2270; J2765; J7030; J7120